=== PATIENT | female | born 1950 | race African-American/Black ===

== ENCOUNTER → 2017-07-16 | Outpatient (CLI) | payer MEDICARE | END | disposition home or self-care (01) | LOC: KCIC MAMMO 10:30 | DX: Z12.31 Encounter for screening mammogram for malignant neoplasm of breast (principal); E28.39 Other primary ovarian failure; E11.9 Type 2 diabetes mellitus without complications; I10 Essential (primary) hypertension; M81.0 Age-related osteoporosis without current pathological fracture; M85.88 Other specified disorders of bone density and structure, other site | CPT/HCPCS: 77067; 77080 ==

== ENCOUNTER → 2017-08-06 | Outpatient (CLI) | payer MEDICARE | END | disposition home or self-care (01) | LOC: KCIC US 09:50 | DX: R92.8 Other abnormal and inconclusive findings on diagnostic imaging of breast (principal); I10 Essential (primary) hypertension; E11.9 Type 2 diabetes mellitus without complications | CPT/HCPCS: 76641 ==

== ENCOUNTER 2019-03-13 12:34 | Emergency (ER) | payer MEDICARE ==
[~2019-03-13] VITALS: Ht 162.6 cm; Wt 85.7 kg
[~2019-03-13 12:34] MED LIST: AMLO5TAB4 PO; ASPI325T8 PO; BYSTOLIC10 MG PO; OLME1TAB23 PO; OMEP20CA5 PO; POTA10TA31 PO
[2019-03-13 14:36] VITALS: BP 152/71
--- NOTE | 2019-03-13 15:30 | RAD ---
EXAM: Right ankle, 3 views. HISTORY: Pain. Fall. COMPARISON: None. FINDINGS: 3 views of the right ankle are obtained. There is a corticated ossicle inferior to the medial malleolus, likely due to the sequela of remote injury or a benign osseous excrescence. There is a benign osseous excrescence or ossicle adjacent to the medial aspect of the distal tibial metaphysis. The ankle mortise is intact. There is medial predominant ankle soft tissue swelling. There is no osteochondral lesion. IMPRESSION: 1. No acute osseous finding. 2. Medial predominant ankle soft tissue swelling. Electronically signed by: Kori Castro MD (03/13/2019 3:27 PM) [facility]
--- NOTE | 2019-03-13 15:52 | PHYS DOC ---
Past Medical History Past Medical History: Diabetes-Type II, Hypertension Past Surgical History: Tubal ligation Alcohol Use: None Drug Use: None Adult General Chief Complaint Chief Complaint: ANKLE PROBLEM HPI HPI Patient is a 68 year old female who presents to the ED today with 2 out of 10 sharp intermittent right medial ankle pain that began 4 days ago after she missed a step and rolled her ankle. Patient states the pain is worse on weight bearing. Denies anything specifically relieving the pain. Review of Systems Review of Systems Constitutional: Denies fever or chills [] Musculoskeletal: Reports right ankle pain Integument: Denies rash or skin lesions [] Neurologic: Denies headache, focal weakness or sensory changes [] All other systems were reviewed and found to be within normal limits, except as documented in this note. Allergies Allergies Allergies Coded Allergies Type Severity Reaction Last Updated Verified codeine Allergy Intermediate vomiting 04/27/13 Yes Physical Exam Physical Exam Constitutional: Well developed, well nourished, no acute distress, non-toxic appearance. [] Skin: Warm, dry, no erythema, no rash. [] Back: No tenderness, no CVA tenderness. [] Extremities: Right ankle with mild soft tissue swelling on the medial aspect, tenderness on palpation of the medial right ankle, full range of motion to the right ankle foot and toes. +2 right pedal pulse. Cap refill less than 2 seconds the right toes. Neurologic: Alert and oriented X 3, normal motor function, normal sensory function, no focal deficits noted. [] Psychologic: Affect normal, judgement normal, mood normal. [] Current Patient Data Vital Signs Vital Signs Date Time Temp Pulse Resp B/P (MAP) Pulse Ox O2 Delivery O2 Flow Rate FiO2 03/13/19 14:36 97.5 69 18 152/71 (98) 98 Room Air 97.5 EKG EKG [] Radiology/Procedures Radiology/Procedures []PROCEDURE: ANKLE RIGHT 3V EXAM: Right ankle, 3 views. HISTORY: Pain. Fall. COMPARISON: None. FINDINGS: 3 views of the right ankle are obtained. There is a corticated ossicle inferior to the medial malleolus, likely due to the sequela of remote injury or a benign osseous excrescence. There is a benign osseous excrescence or ossicle adjacent to the medial aspect of the distal tibial metaphysis. The ankle mortise is intact. There is medial predominant ankle soft tissue swelling. There is no osteochondral lesion. IMPRESSION: 1. No acute osseous finding. 2. Medial predominant ankle soft tissue swelling. Electronically signed by: Saida Chan MD (03/13/2019 3:27 PM) [facility] DICTATED and SIGNED BY: SAIDA CHAN MD DATE: 03/13/19 1527 Course & Med Decision Making Course & Med Decision Making Pertinent Labs and Imaging studies reviewed. (See chart for details) This is a 68-year-old female patient presented to the ED today right ankle pain status post twisting her ankle 4 days ago. Right ankle x-rays interpreted by radiologist are negative for any acute findings. Ice elevation encouraged. Bryn wrap provided which she stated she will wrap her ankle at home. OTC pain relievers. Ortho follow-up provided. Dragon Disclaimer Dragon Disclaimer This electronic medical record was generated, in whole or in part, using a voice recognition dictation system. Departure Departure Impression: Primary Impression: Right ankle sprain Disposition: HOME, SELF-CARE Condition: STABLE Referrals: INGA NG MD (PCP) SURINDER PAZ MD Follow-up in 1-2 weeks Patient Instructions: Ankle Sprain Additional Instructions: You were evaluated in the emergency room for ankle pain, your right ankle x-rays are negative for any acute findings, ice and elevate the extremity. You can take [id number] pain relievers as needed. Follow-up with your own doctor the provided orthopedic doctor in 1-2 weeks. Problem Qualifiers Primary Impression: Right ankle sprain Encounter type: initial encounter Involved ligament of ankle: unspecified ligament Qualified Codes: S93.401A - Sprain of unspecified ligament of right ankle, initial encounter [employer] Mar 13, 2019 15:52
== END 2019-03-13 16:11 | disposition home or self-care (01) ==
LOC: ER 12:34
DX: S93.401A Sprain of unspecified ligament of right ankle, initial encounter (principal); I10 Essential (primary) hypertension; E11.9 Type 2 diabetes mellitus without complications; Z88.5 Allergy status to narcotic agent; X50.9XXA Other and unspecified overexertion or strenuous movements or postures, initial encounter; Y93.89 Activity, other specified; Y92.89 Other specified places as the place of occurrence of the external cause; Y99.8 Other external cause status
CPT/HCPCS: 73610; 99284